=== PATIENT | female | born 1955 ===

== ENCOUNTER 2018-03-04 09:22 | Emergency (ER) | payer MEDICAID ==
[2018-03-04 09:32] VITALS: BP 127/73; PULSE 74; TEMP 98; O2SAT 100
--- NOTE | 2018-03-04 09:58 | C.PDOC ---
History Of Present Illness 62 y/o female presents to the ER complaining of itchy rash which has been present since yesterday. Patient states that the rash started on the abdomen and spread to the rest of her body. Patient reports that she went to her PMD yesterday and he prescribed her Medrol dose pack and Benadryl. However,she has not used the medications. She is concerned that she may have measles.Denies having fever, chills, CP, and SOB. Time Seen by Provider: 03/04/18 09:46 Chief Complaint (Nursing): Abnormal Skin Integrity History Per: Patient History/Exam Limitations: no limitations Onset/Duration Of Symptoms: Days Current Symptoms Are (Timing): Still Present Quality Of Symptoms: Itching Severity: Moderate Past Medical History Reviewed: Historical Data, Nursing Documentation, Vital Signs Vital Signs: Last Vital Signs Temp 98 F 03/04/18 09:27 Pulse 74 03/04/18 09:27 Resp 16 03/04/18 09:27 BP 127/73 03/04/18 09:27 Pulse Ox 100 03/04/18 09:27 - Medical History PMH: No Chronic Diseases Other Surgeries: Hx of surgeries Family History: States: No Known Family Hx - Social History Hx Alcohol Use: No Hx Substance Use: No - Immunization History Hx Tetanus Toxoid Vaccination: No Hx Influenza Vaccination: No Hx Pneumococcal Vaccination: No Review Of Systems Except As Marked, All Systems Reviewed And Found Negative. Constitutional: Negative for: Fever, Chills Cardiovascular: Negative for: Chest Pain Respiratory: Negative for: Shortness of Breath Skin: Positive for: Rash Physical Exam - Physical Exam Appears: Non-toxic, No Acute Distress Skin: Warm, Dry, Rash (brightly erythematous blanching papular morbiliform rash to abdomen and thighs, no bullae or vesicles, no tenderness) Head: Atraumatic, Normacephalic Eye(s): bilateral: Normal Inspection Nose: Normal Oral Mucosa: Moist Tongue: Normal Appearing, No Swelling Lips: Normal Appearing, No Swelling Throat: Normal, No Erythema, No Exudate Neck: Supple Chest: Symmetrical Cardiovascular: Rhythm Regular Respiratory: Normal Breath Sounds, No Rales, No Rhonchi, No Wheezing Gastrointestinal/Abdominal: Soft, No Tenderness, No Guarding, No Rebound Neurological/Psych: Oriented x3, Normal Speech ED Course And Treatment O2 Sat by Pulse Oximetry: 100 (RA) Pulse Ox Interpretation: Normal Medical Decision Making Medical Decision Making: Impression: Rash Progress: Patient has been instructed to take steroids as prescribed by doctor and Benadryl for itching. Patient has been discharged home. 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 - Scribe Statement The provider has reviewed the documentation as recorded by the Scribe Roque Morales Provider Attestation All medical record entries made by the Scribe were at my direction and personally dictated by me. I have reviewed the chart and agree that the record accurately reflects my personal performance of the history, physical exam, medical decision making, and the department course for this patient. I have also personally directed, reviewed, and agree with the discharge instructions and disposition.
[2018-03-04 10:05] VITALS: RESP 17
== END 2018-03-04 10:04 | disposition home or self-care (01) ==
LOC: C.ER 09:22
DX: R21 Rash and other nonspecific skin eruption (principal)

== ENCOUNTER 2018-08-16 11:00 | Outpatient (CLI) | payer MEDICAID | END 2018-08-16 11:01 | disposition home or self-care (01) | LOC: C.MAMMO 11:00 | DX: Z12.31 Encounter for screening mammogram for malignant neoplasm of breast (principal) ==